=== PATIENT | female | born 1960 | race Caucasian/White ===

== ENCOUNTER → 2017-08-10 08:37 | Outpatient (CLI) | payer OTHER, SELFPAY ==
[2017-08-10 12:08] LABS: Alanine Aminotransferase 30 U/L (12-78); Alkaline Phosphatase 95 U/L (46-116); Aspartate Amino Transferase 18 U/L (15-37); Bilirubin,Direct 0.2 mg/dL (0.0-0.2); Bilirubin,Total 0.7 mg/dL (0.2-1.0); Chol/HDL Ratio 2.2 (1-3.5); Cholesterol 168 mg/dL (140-200); HDL Cholesterol 76 mg/dL (29-89); LDL Cholesterol 85 mg/dL (0-130); Triglycerides 37 mg/dL (30-200); VLDL Cholesterol 7 mg/dL (0-40)
== END ==
PROVIDERS: PCP Internal Medicine Adolescent Medicine; Visit Provider Internal Medicine Cardiovascular Disease
DX: I10 Essential (primary) hypertension (principal); I50.9 Heart failure, unspecified
CPT/HCPCS: 36415; 80061; 80076

== ENCOUNTER → 2018-09-30 12:27 | Outpatient (CLI) | payer OTHER, SELFPAY ==
--- NOTE | 2018-09-30 12:38 | MM_ITS ---
MM Dig screening mamm BI w/CAD ORDERING PHYSICIAN : Donta Estrada MD PATIENT AGE: 57 years GENDER: Female COMPARISON: February 2017, October 2015, June 2015, January 2013 INDICATION: Routine SCREENING. No hormones. No new complaints. Noncontributory family history. TECHNIQUE: Standard CC and MLO images were obtained. R2 CAD reviewed. FINDINGS: Low-density breast bilaterally with no dominant mass or suspicious calcifications. No significant change since multiple previous studies. CAD computer review highlights no areas of concern either RIGHT BREAST:. No new findings of significant concern. Scant stable area at the retroareolar region on right appears similar to previous studies. Skin Mole markers are again on right Follow-up in one year adequate LEFT BREAST:Stable appearance with no areas of concern. Follow-up in one year recommended IMPRESSION: Negative, Stable bilateral mammogram. No new areas of concern. Bilateral follow-up in one year recommended BI-RADS Category: 1 Negative RECOMMENDED FOLLOW-UP: 1YR 1 YEAR FOLLOW-UP (A letter has been sent to the patient regarding results of the study.)
== END ==
PROVIDERS: PCP Internal Medicine Adolescent Medicine; Visit Provider Internal Medicine Adolescent Medicine
DX: Z12.31 Encounter for screening mammogram for malignant neoplasm of breast (principal)
CPT/HCPCS: 77067

== ENCOUNTER → 2020-02-23 15:12 | Outpatient (CLI) | payer OTHER, SELFPAY ==
--- NOTE | 2020-02-23 15:24 | MM_ITS ---
PROCEDURE: MM DIG SCREENING MAMM BI W/CAD Digital Breast Tomosynthesis Included CLINICAL INDICATION: SCREENING There is no personal or family history of breast cancer. COMPARISON: MG [facility]B DIG MAMM-SCREEN SOFIA from 11/08/2015 MG [facility] DIG MAMM-SCREEN SOFIA W/CAD from 02/14/2017 MG [facility] MM Dig screening mamm BI w/CAD from 09/30/2018 TECHNIQUE: Standard CC and MLO images and 3D Tomosynthesis was obtained. R2 CAD reviewed. FINDINGS: The breasts are composed primarily of fat with minimal scattered fibroglandular densities in each breast. There is a mole marker on each breast. In addition there is a mole upper outer right breast which was not marked but was marked with a mole marker on the previous study 09/30/2018 there is no suspicious lesion in either breast and no suspicious microcalcifications. IMPRESSION: Fatty type breast parenchyma with no suspicious lesions seen BI-RAD Category: 2 Benign Finding(s) FOLLOW-UP: 1YR 1 Year Follow-up (A letter has been sent to the patient regarding results of the study.) Dictated Dr. Mark Smith MD 02/24/2020 11:17 Dr. Mark Stone MD in [place] 02/24/2020 11:17
== END ==
PROVIDERS: PCP Internal Medicine Adolescent Medicine; Visit Provider Internal Medicine Adolescent Medicine
DX: Z12.31 Encounter for screening mammogram for malignant neoplasm of breast (principal)
CPT/HCPCS: 77063; 77067

== ENCOUNTER → 2022-06-26 13:23 | Outpatient (CLI) | payer OTHER, SELFPAY ==
--- NOTE | 2022-06-26 13:28 | MM_ITS ---
PROCEDURE INFORMATION: Exam: MG Bilateral Screening 3D Mammography Exam date and time: 06/26/2022 1:30 PM Age: 61 years old Clinical indication: Screening. No family history of breast cancer. TECHNIQUE: Imaging protocol: Bilateral Screening tomosynthesis and 2D mammography including computer-aided detection (CAD) when performed. COMPARISON: 1. MG MM MAMMO DIGITAL CARL SCREEN BILAT 01/08/2021 11:18 AM 2. MG MM DIG SCREENING MAMM BI W/CAD 02/23/2020 3:23 PM 3. MG [facility] MM Dig screening mamm BI w/CAD 09/30/2018 12:48 PM 4. MG DMSB DIG MAMM-SCREEN SOFIA W/CAD 02/14/2017 2:09 PM FINDINGS: MAMMOGRAPHY: Breast composition: The breasts are almost entirely fatty. Mass: None. Architectural distortion: None. Calcifications: No suspicious calcifications. Asymmetric density: None. Skin thickening: None. Axillary adenopathy: None. IMPRESSION: No mammographic evidence of malignancy. Annual screening is recommended unless otherwise clinically indicated. ASSESSMENT: BI-RADS Category 1: Negative
== END ==
PROVIDERS: PCP Internal Medicine Adolescent Medicine; Visit Provider Internal Medicine Adolescent Medicine
DX: Z12.31 Encounter for screening mammogram for malignant neoplasm of breast (principal)
CPT/HCPCS: 77063; 77067